=== PATIENT | male | born 1925 | race Caucasian/White ===

== ENCOUNTER 2016-11-17 08:45 | Inpatient (IN) | payer MEDICARE, OTHER ==
[~2016-11-17] VITALS: Ht 180.3 cm; Wt 79.8 kg
[~2016-11-17 08:45] MED LIST: ASPI-587 PO; GLYB5TAB6 PO; HCTZ12.5T GT; LOSA50TA6 PO; PIOG1TAB15 PO
--- NOTE | 2016-11-17 08:57 | ED Fall/Injury ---
General Stated Complaint: FALL Source: patient, EMS Exam Limitations: no limitations History of Present Illness Time seen by provider: 08:53 Initial Comments 89 yowm slipped and fell in shower 1 hr ago w injury rt leg above knee. No other injury. Unable to wt bear. S/P rt knee replace 15 yrs ago. S/P rt hip. S /P cervical disc. C/o sharp pain rt thigh. No LOS. No syncope. No chest pain or palpatations. Hypertension, DM. PCP Dr. Benitez. Allergies and Home Medications Allergies Coded Allergies: Penicillins (Unverified Allergy, Unknown, 11/06/14) Home Medications Aspirin 81 Mg Tablet.dr 81 MG PO DAILY (Reported) Glyburide 5 Mg Tablet 1 EACH PO DAILY (Reported) Hydrochlorothiazide 12.5 Mg Cap 25 MG GT DAILY (Reported) Losartan Potassium 50 Mg Tablet 50 MG PO DAILY (Reported) Pioglitazone Hcl/Metformin Hcl 1 Each Tablet 1 EACH PO DAILY (Reported) Constitutional: No chills, No fever Eyes: Denies Blurred Vision Ears, Nose, Mouth, Throat: denies ear pain Respiratory: No cough Cardiovascular: No chest pain Gastrointestinal: No abdominal pain, No vomiting Genitourinary: no symptoms reported Musculoskeletal: No back pain, joint pain (rt knee) Skin: No rash Psychiatric/Neurological: No Symptoms Reported Past Dujlpro-Olsheb-Swwlqe Hx Surgeries HX Surgeries: Yes (NECK SURG FOR PINCHED NERVE) Surgeries: Appendectomy, Orthopedic Respiratory Hx Respiratory Disorders: No Cardiovascular Hx Cardiac Disorders: Yes Cardiac Disorders: Hypertension Neurological Hx Neurological Disorders: No Genitourinary Hx Genitourinary Disorders: No Gastrointestinal Hx Gastrointestinal Disorders: No Musculoskeletal Hx Musculoskeletal Disorders: Yes (NECK ) Musculoskeletal Disorders: Arthritis Endocrine Hx Endocrine Disorders: Yes Endocrine Disorders: Diabetes, Non-Insulin dep HEENT HX ENT Disorders: Yes HEENT Disorders: Cataract Cancer Hx Cancer: No Psychosocial Hx Psychiatric Problems: No Integumentary HX Skin/Integumentary Disorder: No Blood Transfusions Hx Blood Disorders: Yes (HEPATITIS A 2003) Reviewed Nursing Assessment Reviewed/Agree w Nursing PMH: Yes Physical Exam Vital Signs Vital Sign - Last 12Hours 11/17/16 08:45 Temp 96.5 Pulse 103 Resp 18 B/P 188/120 Pulse Ox 92 O2 Delivery Room Air Capillary Refill : General Appearance: WD/WN mild distress HEENT: normal ENT inspection Neck: normal inspection Cardiovascular: regular rate, rhythm Respiratory: lungs clear Gastrointestinal: normal bowel sounds non tender Back: normal inspection Extremities: other (pain and swelling rt knee and distal thigh) Neurologic/Psychiatric: no motor/sensory deficits alert normal mood/affect Skin: normal color warm/dry [employer] Coma Score Best Eye Response: (4) Open Spontaneously Best Verbal Response: (5) Oriented Best Motor Response: (6) Obeys Commands [employer] Total: 15 Progress/Results/Core Measures Results/Orders My Orders Orders-NEELA DALTON MD Fentanyl Injection (Sublimaze Injection (11/17/16 09:00) Ondansetron Injection (Zofran Injectio (11/17/16 09:00) Ns Iv 1000 Ml (Sodium Chloride 0.9%) (11/17/16 09:00) Knee, Right, 2 Views (11/17/16 08:52) Hip, Right, 2 Views (11/17/16 08:52) Femur, Right, 2 Views (11/17/16 08:52) Ct Extremity Lower Right W (11/17/16 09:51) Cbc With Automated Diff (11/17/16 09:53) Comprehensive Metabolic Panel (11/17/16 09:53) Ua Culture If Indicated (11/17/16 09:53) Ekg Tracing (11/17/16 09:53) Type And Screen (11/17/16 09:53) Chest 1 View, Ap/Pa Only (11/17/16 09:53) Medications Given in ED Current Medications Medications Dose Ordered Sig/Yefri Route Start Time Stop Time Status Last Admin Dose Admin Fentanyl Citrate 100 mcg Q1H PRN IVP 11/17/16 09:00 11/17/16 08:59 100 MCG Ondansetron HCl 4 mg ONCE ONCE IVP 11/17/16 09:00 11/17/16 09:01 DC 11/17/16 08:59 4 MG Vital Signs/I&O Vital Sign - Last 12Hours 11/17/16 11/17/16 08:45 08:45 Temp 96.5 96.5 Pulse 103 103 Resp 18 20 B/P 188/120 188/120 Pulse Ox 92 92 O2 Delivery Room Air Progress Note : Time: 09:55 Progress Note Xrays show fx distal rt femur. Radiologist concerned w hip and wants ct- ordered. Dr. Rolle called. Dr. Robles admitted. Preop tests ordered. Family debating ortho of choice. Departure Communication Time/Spoke to Admitting Phy: 09:[address] Robles. Time/Spoke to Consulting Physi: 09:57 Communication/Consulting Dr. Rolle Impression Impression: Primary Impression: Fracture, femur, distal Qualified Code: S72.401A - Unspecified fracture of lower end of right femur, initial encounter for closed fracture Disposition: HOME, SELF-CARE Condition: Improved Decision to Admit Reason: Admit from ER (Trauma) Decision to Admit/Date: Nov 17, 2016 Time/Decision to Admit Time: 09:58 Departure-Patient Inst. Referrals: NEELA BENITEZ MD (PCP) Primary Care Physician NEELA DALTON MD Nov 17, 2016 08:57
[2016-11-17] MEDS ORDERED: fentaNYL INJECTION 100 MCG/2 ML AMP IVP PRN (09:00)
[2016-11-17] MEDS ORDERED: ONDANSETRON 4 MG/2 ML (SDV) Z0FRAN IVP ONE (09:00)
[2016-11-17] MEDS ORDERED: NS IV 1000 ML 1,000 ML IV SCH (09:00)
--- NOTE | 2016-11-17 09:53 | Diagnostic Imaging Report ---
Clinical indication: Patient is post fall in shower this morning. Patient has pain in the right lower extremity. Exams: 1: X-ray of the right knee, 2 views. 2: X-ray of the right femur, 4 views. 3: X-ray of the right hip, 2 views. Comparison: None. Findings: The x-rays show diffuse osteopenia. There is a bipolar right hip arthroplasty. There is a questionable area of cortical regularity involving the inferior right acetabular rim and fracture can't be completely excluded. There is also bony thickening and irregularity of the right ischium which may be from old fracture changes. The right hip hardware is otherwise unremarkable as visualized. There is a comminuted and displaced fracture of the distal femoral diaphysis which demonstrates medial apex angulation and roughly 3 mm of anterior displacement of distal fracture fragment. Right total knee arthroplasty is seen. Besides the region of the distal femoral fracture, the remainder of the hardware is unremarkable. There is suspected small right knee effusion. Vascular calcifications are seen. Impression: 1: There is a comminuted and mildly displaced fracture of the distal femoral diaphysis with medial apex angulation. 2: Concern for possible fracture of the right acetabulum. CT scan of the right hip would better evaluate. 3: Bipolar right hip arthroplasty and right knee arthroplasties are seen. Critical findings Results of this report was discussed with Dr. Jorge Bolden via the telephone on 11/17/2016 at 0950 hrs. Dictated by: Dictated on workstation # [id number]
[2016-11-17 10:01] LABS: BASOPHILS % (AUTO) 0 % (0-10); EOSINOPHILS # (AUTO) 0.2 10^3/uL (0.0-0.3); EOSINOPHILS % (AUTO) 3 % (0-10); LYMPHOCYTES # (AUTO) 1.7 X 10^3 (1.0-4.0); LYMPHOCYTES % (AUTO) 27 % (12-44); MEAN CORPUSCULAR HEMOGLOBIN 32 PG (25-34); MEAN CORPUSCULAR HGB CONC 33 G/DL (32-36); MEAN CORPUSCULAR VOLUME 100 FL (80-99); MEAN PLATELET VOLUME 9.4 FL (7.4-10.4); MONOCYTES # (AUTO) 0.5 X 10^3 (0.0-1.0); MONOCYTES % (AUTO) 7 % (0-12); NEUTROPHILS % (AUTO) 62 % (42-75); PLATELET COUNT 226 10^3/uL (130-400); RED BLOOD COUNT 3.49 10^6/uL (4.35-5.85); RED CELL DISTRIBUTION WIDTH 13.8 % (10.0-14.5); WHITE BLOOD COUNT 6.4 10^3/uL (4.3-11.0)
[2016-11-17 10:13] LABS: BILIRUBIN,TOTAL 0.8 MG/DL (0.1-1.0); CALCIUM 8.8 MG/DL (8.5-10.1); CREATININE SERUM 1.63 MG/DL (0.60-1.30); POTASSIUM 4.1 MMOL/L (3.6-5.0); TOTAL PROTEIN 6.5 G/DL (6.4-8.2)
--- NOTE | 2016-11-17 10:18 | Diagnostic Imaging Report ---
INDICATION: Preop femur fracture. COMPARISON: 11/06/2014. FINDINGS: Single view of the chest demonstrates chronic elevation of the right hemidiaphragm. There is infiltrate in the left base. Heart is prominent without pulmonary edema. There is no pneumothorax. IMPRESSION: 1. Infiltrate left lung base. 2. Chronic elevation of right hemidiaphragm. Dictated by: Dictated on workstation # [id number]
--- NOTE | 2016-11-17 10:21 | Diagnostic Imaging Report ---
Clinical indication: Patient status post fall this morning. Followup x-ray. Exam: Axial CT scan of the right hip performed without IV contrast. Sagittal and coronal reformatted images are created. Comparison: X-ray of the right hip dated 11/17/2016. Findings: Osteopenia is noted. Bipolar right hip arthroplasty is again seen. Streak artifact obscures portions of the bony structures. Again seen area of cortical irregularity involving the posterior right acetabulum which represents a chronic bony fragment and is corticated. There is no acute fracture seen. Old healed fracture changes with bony hypertrophy involving the inferior right ischium. The remainder of the pelvis and left hip is unremarkable. Visualized portion of the pelvic soft tissue and extrapelvic soft tissue structures are unremarkable. There is atrophy of the right upper thigh and right gluteus musculature. Vascular calcifications are seen. Impression: 1.: There is no evidence of acute fracture or dislocation. 2: There is a chronic calcification seen adjacent to the posterior wall of the right acetabulum which correlates to the abnormality seen on the x-ray. This is chronic and does not represent an acute fracture. 3: Bipolar right hip arthroplasty with no gross complication. Dictated by: Dictated on workstation # [id number]
[2016-11-17] MEDS ORDERED: ONDANSETRON 4 MG/2 ML (SDV) Z0FRAN IV PRN ×3 (11:45→16:15)
[2016-11-17] MEDS ORDERED: fentaNYL INJECTION 100 MCG/2 ML AMP IV PRN (11:45)
--- NOTE | 2016-11-17 11:59 | History & Physical-Hospitalist ---
HPI History of Present Illness: HPI/Chief Complaint The patient's an 89-year-old white male who fell coming out of the shower at his home this morning and suffered a distal femur fracture. His daughter states that he does not walk much but is able to stand and pivot. He spends most of his time in a chair or a wheelchair. His other medical problems include diabetes for which he takes oral medications and high blood pressure. Source: patient, family Exam Limitations: no limitations Date Seen 11/17/16 Attending Physician Jose Martinez MD PCP Jorge Benitez MD Referring Physician Date of Admission Nov 17, 2016 at 10:31 Home Medications & Allergies Home Medications Reviewed patient Home Medication Reconciliation Form Allergies Coded Allergies: Penicillins (Unverified Allergy, Unknown, 11/06/14) Past Peetuef-Dsrpbu-Wqvzvh Hx Patient Social History Alcohol Use: Rarely Uses Recreational Drug Use: No Smoking Status: Never a Smoker Physical Abuse Screen: No Sexual Abuse: No Recent Foreign Travel: No Contact w/other who traveled: No Recent Hopitalizations: No Recent Infectious Disease Expo: No Immunizations Up To Date Tetanus Booster (TDap): Unknown Date of Influenza Vaccine: Jul 14, 2016 Seasonal Allergies Seasonal Allergies: No Surgeries HX Surgeries: Yes (NECK SURG FOR PINCHED NERVE) Surgeries: Appendectomy, Orthopedic Respiratory Hx Respiratory Disorders: No Cardiovascular Hx Cardiovascular Disorders: Yes Cardiac Disorders: Hypertension Neurological Hx Neurological Disorders: No Genitourinary Hx Genitourinary Disorders: No Gastrointestinal Hx Gastrointestinal Disorders: No Musculoskeletal Hx Musculoskeletal Disorders: Yes (NECK ) Musculoskeletal Disorders: Arthritis Endocrine Hx Endocrine Disorders: Yes Endocrine Disorders: Diabetes, Non-Insulin dep HEENT HX ENT Disorders: Yes HEENT Disorders: Cataract Cancer Hx Cancer: No Psychosocial Hx Psychiatric Problems: No Integumentary HX Skin/Integumentary Disorder: No Blood Transfusions Hx Blood Disorders: Yes (HEPATITIS A 2003) Reviewed Nursing Assessment Reviewed/Agree w Nursing PMH: Yes Family Medical History Family Hx: Cardiovascular disease G8 BROTHER Completed stroke 19 FATHER Diabetes mellitus G8 BROTHER FH: throat cancer G8 BROTHER Hypertension DAUGHTER DAUGHTER DAUGHTER Review of Systems Constitutional: see HPI EENTM: no symptoms reported Respiratory: no symptoms reported Cardiovascular: no symptoms reported Gastrointestinal: no symptoms reported Genitourinary: no symptoms reported Musculoskeletal: other Skin: no symptoms reported Psychiatric/Neurological: No Symptoms Reported Physical Exam Physical Exam Vital Signs Vital Sign - Last 12Hours 11/17/16 08:45 Temp 96.5 Pulse 103 Resp 18 B/P 188/120 Pulse Ox 92 O2 Delivery Room Air Capillary Refill : Less Than 3 Seconds General Appearance: Other (the patient is a pleasant elderly white male) Eyes: Bilateral Eye Normal Inspection HEENT: Normal ENT Inspection Neck: Normal Inspection Respiratory: Chest Non Tender Lungs Clear Normal Breath Sounds No Accessory Muscle Use No Respiratory Distress Cardiovascular: Regular Rate, Rhythm No Edema No Gallop No JVD No Murmur Normal Peripheral Pulses Gastrointestinal: Normal Bowel Sounds No Organomegaly No Pulsatile Mass Non Tender Soft Back: Normal Inspection No CVA Tenderness No Vertebral Tenderness Extremity: Normal Capillary Refill Other (there is swelling and apparent deformity in the distal right femur) Neurologic/Psychiatric: Alert Oriented x3 No Motor/Sensory Deficits Normal Mood/Affect Skin: Normal Color Warm/Dry Lymphatic: No Adenopathy Results Results/Procedures Lab Laboratory Tests 11/17/16 08:50 Assessment/Plan Admission Diagnosis 1.fracture right distal femur. 2.hypertension. 3.diabetes mellitus type II oral medications Assessment and Plan Plan: OR today. Clinical Quality Measures DVT/VTE Risk/Contraindication: Risk Factor Score Per Nursin RFS Level Per Nursing on Admit: 4+=Very High JOSE MARTINEZ MD Nov 17, 2016 11:59
[2016-11-17 12:00] VITALS: BP 119/76
[2016-11-17] MEDS ORDERED: proPOfol 200 MG/20 ML (DIPRIVAN) VIAL IV ONE (13:24)
[2016-11-17] MEDS: NS IV 1000 ML 1,000 ML IV SCH ×2 (13:56→21:03)
[2016-11-17] MEDS: LACTATED RINGERS 1,000 ML IV PRN ×3 (14:03→14:50)
[2016-11-17] MEDS ORDERED: morphine INJ 10 MG/ML 1ML (SYR OR VIAL) ONE (14:25)
[2016-11-17] MEDS ORDERED: MEPERIDINE (DEMEROL) INJ 50 MG/ML ONE (14:26)
[2016-11-17] MEDS ORDERED: LACTATED RINGERS 1,000 ML IV ONE ×2 (14:30→14:51)
[2016-11-17] MEDS ORDERED: CLINDAMYCIN 600 MG/4ML (CLEOCIN) VIAL ONE (14:30)
[2016-11-17] MEDS ORDERED: CLINDAMYCIN 600 MG/50 ML IVPB 50 ML IV ONE (14:45)
[2016-11-17] MEDS ORDERED: PHENYLEPHRINE 100 MCG/ML 10 ML (ANESTHESIA) SYR ONE (14:45)
[2016-11-17] MEDS ORDERED: NS (IVPB) 250 ML ONE (14:47)
[2016-11-17] MEDS ORDERED: PHENYLEPHRINE INJ 10 MG/ML (NEO-SYNEPHRINE 1%) ONE (14:47)
--- NOTE | 2016-11-17 15:39 | Consultation ---
History of Present Illness History of Present Illness Patient Consulted On(colby/time) 11/17/16 15:33 Date of Admission 11/17/2016 Reason for Visit: right thigh pain History of Present Illness This 89 year old white male fell at home this AM in the shower and hurt the right leg. He was seen in the ER and diagnosed with a right femur fracture above a total knee arthroplasty. He lives alone and is very frail. He is a minimal ambulator and uses a motorized scooter in the home. He denies any other extremity pain, LOC, or other injury. He had a right TKA done [address] Graves and had a right hip bipolar done by Dr. Graves years ago for a fracture. His a few years ago and his daughter is with him today. Dr. Valladares, a classified advertising supervisor with our group, is his grandson. Allergies and Home Medications Allergies Coded Allergies: Penicillins (Unverified Allergy, Unknown, 11/06/14) Home Medications Aspirin 81 Mg Tablet.dr 81 MG PO DAILY (Reported) Glyburide 5 Mg Tablet 1 EACH PO DAILY (Reported) Hydrochlorothiazide 12.5 Mg Cap 25 MG GT DAILY (Reported) Losartan Potassium 50 Mg Tablet 50 MG PO DAILY (Reported) Pioglitazone Hcl/Metformin Hcl 1 Each Tablet 1 EACH PO DAILY (Reported) Past Vhyuape-Bvkpcq-Kphxjf Hx Patient Social History Alcohol Use: Denies Use Recreational Drug Use: No Smoking Status: Never a Smoker Recent Foreign Travel: No Contact w/Someone Who Travel: No Recent Infectious Disease Expo: No Recent Hopitalizations: No Physical Abuse Screen: No Sexual Abuse: No Immunizations Up To Date Tetanus Booster (TDap): Unknown PED Vaccines UTD: No Date of Pneumonia Vaccine: Dec 12, 2013 Date of Influenza Vaccine: Jul 14, 2016 Seasonal Allergies Seasonal Allergies: No Surgeries HX Surgeries: Yes (NECK SURG FOR PINCHED NERVE) Surgeries: Appendectomy, Orthopedic Respiratory Hx Respiratory Disorders: No Cardiovascular Hx Cardiac Disorders: Yes Cardiac Disorders: Hypertension Neurological Hx Neurological Disorders: No Genitourinary Hx Genitourinary Disorders: No Gastrointestinal Hx Gastrointestinal Disorders: No Musculoskeletal Hx Musculoskeletal Disorders: Yes (NECK ) Musculoskeletal Disorders: Arthritis Endocrine Hx Endocrine Disorders: Yes Endocrine Disorders: Diabetes, Non-Insulin dep HEENT HX ENT Disorders: Yes HEENT Disorders: Cataract Cancer Hx Cancer: No Psychosocial Hx Psychiatric Problems: No Integumentary HX Skin/Integumentary Disorder: No Blood Transfusions Hx Blood Disorders: Yes (HEPATITIS A 2003) Reviewed Nursing Assessment Reviewed/Agree w Nursing PMH: Yes Family Medical History Family Medial History: Cardiovascular disease G8 BROTHER Completed stroke 19 FATHER Diabetes mellitus G8 BROTHER FH: throat cancer G8 BROTHER Hypertension DAUGHTER DAUGHTER DAUGHTER Physical Exam-General Problems Physical Exam Vital Signs Vital Sign - Last 12Hours 11/17/16 11/17/16 08:45 11:30 Temp 96.5 Pulse 103 Resp 18 B/P 188/120 Pulse Ox 92 O2 Delivery Room Air O2 Flow Rate 2.00 Capillary Refill : Less Than 3 SecondsLess Than 3 Seconds Neck: non-tender Respiratory: chest non-tender Extremities: normal capillary refill pelvis stable pedal edema slow capillary refill other (The right leg is shortened and externally rotated. The right thigh is swollen and tender.) Neurologic/Psychiatric: no motor/sensory deficits alert normal mood/affect oriented x 3 Skin: normal color warm/dry Assessment/Plan Assessment/Plan Admission Diagnosis/Plan Right comminuted distal femur fracture above a total knee arthroplasty-- His best option would be ORIF with a locking plate and screws. He was cleared for surgery and will be take to surgery this afternoon. He lives alone and will need to go to rehab or go to alf in several days after he is medically stable and getting over the surgery. Clinical Quality Measures DVT/VTE Risk/Contraindication: Risk Factor Score Per Nursin RFS Level Per Nursing on Admit: 4+=Very High SULY EPPS MD Nov 17, 2016 15:39
--- NOTE | 2016-11-17 15:42 | Diagnostic Imaging Report ---
Clinical indication: Open reduction internal fixation of the distal femur fracture. Exam: There is a total of four limited intraoperative spot fluoroscopic images of the distal right femur. Comparison: X-ray of the right femur dated 11/17/2016. Findings and impression: There has been interval placement of sideplate and screws internally fixing the comminuted distal fibular diaphyseal fracture which is now in near anatomic alignment. Right total knee arthroplasty is partially visualized. Please see surgeon's report for more detail. Fluoroscopy was provided for surgeons and a total of 29.3 seconds and 1.91 mGy was provided. Dictated by: Dictated on workstation # [id number]
--- NOTE | 2016-11-17 15:43 | Progress Note-Post Operative ---
Post-Operative Progess Note Road Marker Lucio Estrada PA-C Pre-Operative Diagnosis Right periprosthetic, comminuted supracondylar femur fracture Post-Operative Diagnosis same Post-Op Procedure Note Date of Procedure: Nov 17, 2016 Name of Procedure: ORIF right distal femur Procedure Note/Findings Highly comminuted fracture Anesthesia Type Spinal Packing: none Specimen(s) collected none SULY EPPS MD Nov 17, 2016 15:43
[2016-11-17] MEDS ORDERED: oxyCODONE/APAP 5/325MG (PERCOCET 5) TABLET PO PRN (15:45)
[2016-11-17] MEDS ORDERED: morphine INJ 10 MG/ML 1ML (SYR OR VIAL) IV PRN (16:15)
[2016-11-17 17:00] VITALS: BP 120/75
[2016-11-17 19:56] VITALS: BP 125/79
[2016-11-17] MEDS: DOCUSATE SODIUM 100 MG (COLACE) CAP PO SCH (21:02)
[2016-11-17] MEDS: HYDROcodone/APAP 5 MG/325 MG (LORTAB) TAB PO PRN (21:03)
[2016-11-18 00:02] VITALS: BP 126/67
[2016-11-18] MEDS: morphine INJ 4 MG/ML 1 ML (VIAL/SYRINGE) IVP PRN ×3 (00:10→16:52)
[2016-11-18] MEDS: HYDROcodone/APAP 5 MG/325 MG (LORTAB) TAB PO PRN ×2 (02:46→10:32)
[2016-11-18] MEDS ORDERED: VANCOMYCIN IV ADD-VANTAGE 1,000 MG in SODIUM CHLORIDE (ADD-VANTAGE) 250 ML IV ONE (03:45)
[2016-11-18 04:00] VITALS: BP 93/58
[2016-11-18 07:01] LABS: CALCIUM 7.8 MG/DL (8.5-10.1); CREATININE SERUM 1.86 MG/DL (0.60-1.30); POTASSIUM 4.8 MMOL/L (3.6-5.0)
[2016-11-18] MEDS: NS IV 1000 ML 1,000 ML IV SCH ×2 (07:54→16:52)
[2016-11-18 08:00] VITALS: BP 91/60
--- NOTE | 2016-11-18 09:29 | Progress Note (SOAP) ---
Subjective Subjective/Events-last exam He is postop from ORIF of right femur. He has no complaints. Objective Exam Vital Signs Date Time Temp Pulse Resp B/P Pulse Ox O2 Delivery O2 Flow Rate FiO2 11/18/16 08:00 97.8 95 20 91/60 97 Nasal Cannula 2.00 11/18/16 07:47 3.00 11/18/16 04:00 97.2 98 18 93/58 94 Nasal Cannula 2.00 11/18/16 00:02 97.1 88 20 126/67 90 Nasal Cannula 2.00 11/17/16 23:25 2.00 11/17/16 20:00 96 Nasal Cannula 2.00 11/17/16 19:56 97.1 109 20 125/79 96 Nasal Cannula 2.00 11/17/16 17:00 97.4 104 20 120/75 96 Nasal Cannula 2.00 11/17/16 12:00 97.6 84 20 119/76 93 Nasal Cannula 2.00 11/17/16 11:30 93 Nasal Cannula 2.00 11/17/16 10:33 106 18 95 I & O 11/18/16 07:00 Intake Total 4340 ml Output Total 1150 ml Balance 3190 ml Capillary Refill : Less Than 3 SecondsLess Than 3 Seconds General Appearance: No Apparent Distress Extremity: Normal Capillary Refill No Calf Tenderness Other (Right thigh with no drainage.) Neurologic/Psychiatric: Oriented x3 Results Lab Laboratory Tests 11/18/16 05:21: Anion Gap 10, BUN/Creatinine Ratio 19, Blood Urea Nitrogen 35H, Calcium Level 7.8L, Carbon Dioxide Level 19L, Chloride Level 108H, Creatinine 1.86H, Estimat Glomerular Filtration Rate 34, Glucose Level 141H, Hematocrit 27L, Hemoglobin 8.3#L, Potassium Level 4.8, Sodium Level 137 Assessment/Plan Assessment/Plan Assess & Plan/Chief Complaint Postop ORIF of right distal femur-- He is a minimal ambulator. He will have PT and need to go to rehab or skilled. His hemoglobin is 8.3 and he might need some blood tomorrow if it drops below 8. Diagnosis/Problems: Clinical Quality Measures DVT/VTE Risk/Contraindication: Risk Factor Score Per Nursin RFS Level Per Nursing on Admit: 4+=Very High SULY EPPS MD Nov 18, 2016 09:29
[2016-11-18] MEDS: DOCUSATE SODIUM 100 MG (COLACE) CAP PO SCH ×2 (10:32→20:26)
[2016-11-18] MEDS: ENOXAPARIN 30 MG/0.3 ML (LOVENOX) SYR SC SCH (10:32)
--- NOTE | 2016-11-18 10:33 | Anesthesia-Regional Post-Op ---
Regional Patient Condition Mental Status: Alert, Oriented x3 Circulation: Same as Pre-Op Headache: Absent Sensation: Full Recovery Motor Block: Absent Post Op Complications Complications None Follow Up Care/Instructions Patient Instructions None needed. Anesthesia/Patient Condition Patient is doing well, no complaints, stable vital signs, no apparent adverse anesthesia problems. No complications reported per nursing. ION SABA CRNA Nov 18, 2016 10:33
[2016-11-18 12:00] VITALS: BP 87/50
[2016-11-18] MEDS ORDERED: LOSARTAN 50 MG (COZAAR) TAB PO SCH (13:09)
--- NOTE | 2016-11-18 13:14 | Progress Note-Hospitalist ---
Standard Progress Note Progress Notes/Assess & Plan Date Seen 11/18/16 Diagnosis 1.fracture right distal femur. 2.hypertension. 3.diabetes mellitus type II oral medications Assess & Plan/Chief Complaint The patient reports reasonable control of pain. He and his daughter are concerned as his outpatient meds have not been started. I have added and chose those that are important for the time being. Physical exam: He is alert and oriented. Lungs are clear to auscultation. CV is regular without murmur. Impression: Fracture right distal femur post operative stabilization. 2 hypertension. 3 diabetes mellitus type II on oral medications. Plan: Restart appropriate home medicines. PT to start in the morning. Labs Laboratory Tests 11/17/16 08:50 11/18/16 05:21 ASHTYN MARTINEZ MD Nov 18, 2016 13:14
[2016-11-18 16:00] VITALS: BP 91/57
[2016-11-18] MEDS: metFORMIN 850 MG (GLUCOPHAGE) TAB PO SCH (16:52)
[2016-11-18 19:27] VITALS: BP 86/56
[2016-11-18] MEDS: PIOGLITAZONE 30MG (ACTOS) TAB PO SCH (20:26)
[2016-11-19] VITALS (12 sets, daily range): BP systolic 89–142; BP diastolic 51–86
[2016-11-19 00:02] LABS: MEAN PLATELET VOLUME 8.9 FL (7.4-10.4); RED BLOOD COUNT 2.4 10^6/uL (4.35-5.85); RED CELL DISTRIBUTION WIDTH 13.8 % (10.0-14.5); WHITE BLOOD COUNT 10.2 10^3/uL (4.3-11.0)
[2016-11-19] MEDS: NS IV 1000 ML 1,000 ML IV SCH ×2 (00:36→12:04)
[2016-11-19] MEDS ORDERED: NS IV 500 ML 500 ML ONE (02:09)
[2016-11-19] MEDS: metFORMIN 850 MG (GLUCOPHAGE) TAB PO SCH (06:12)
[2016-11-19] MEDS ORDERED: PIOG30TA26 PO (08:44)
[2016-11-19] MEDS ORDERED: HYDR25TA4 PO (08:44)
[2016-11-19] MEDS ORDERED: LOSA50TA36 PO (08:44)
[2016-11-19] MEDS ORDERED: METF850T2 PO (08:44)
[2016-11-19] MEDS ORDERED: CYAN100T PO (08:45)
[2016-11-19] MEDS ORDERED: CYAN100015 SL (08:46)
[2016-11-19 09:02] LABS: CALCIUM 7.9 MG/DL (8.5-10.1); CREATININE SERUM 2.23 MG/DL (0.60-1.30); POTASSIUM 4.9 MMOL/L (3.6-5.0)
[2016-11-19] MEDS: PIOGLITAZONE 30MG (ACTOS) TAB PO SCH ×2 (09:07→21:35)
[2016-11-19] MEDS: DOCUSATE SODIUM 100 MG (COLACE) CAP PO SCH ×2 (09:07→21:35)
[2016-11-19] MEDS ORDERED: HYDR453.3 TP (09:15)
--- NOTE | 2016-11-19 09:58 | Physical Therapy Evaluation ---
PT Evaluation-General Medical Diagnosis Admission Date Nov 17, 2016 at 10:31 Medical Diagnosis: right femur fracture Onset Date: Nov 17, 2016 Therapy Diagnosis Therapy Diagnosis: debility and weakness Height/Weight Height (Feet): 5 Height (Inches): 11.00 Weight (Pounds): 176 Weight (Ounces): 0.0 Precautions Precautions/Isolations: Fall Prevention, Standard Precautions Weight Bear Status Weight Bearing Restriction: Touch Toe Bearing Location Restriction: R LE Referral Physician: Aquilino Reason for Referral: Evaluation/Treatment Medical History Pertinent Medical History: Arthritis, DM, HTN Additional Medical History fell getting out of the shower Current History per patient and daughter, patient transfers only at home to w/c for mobility Reviewed History: Yes Social History Home: Single Level Current Living Status: Alone Entry Into Home: Level Entry Prior/Core FIM Prior Level of Function Functional [place] Measure 0=Not Assessed/NA 4=Minimal Assistance 1=Total Assistance 5=Supervision or Setup 2=Maximal Assistance 6=Modified [place] 3=Moderate Assistance 7=Complete [place] Bed Mobility: 5 Transfers (B,C,W/C) (FIM): 5 Gait: 1 Wheelchair Mobility: 7 ambulates less than 5' PT Evaluation-Current Subjective Patient is in bed and reluctant to participate with PT. Patient rates right LE pain 8/10 with meds issued. Pain Numeric Pain Scale: 8 Location: Right Location Body Site: Thigh Pain Description: Acute Pt/Family Goals noted edema right LE Objective Patient Orientation: Person, Time, Situation Problem Solving: Poor Attachments: Oxygen (3L), Combs Catheter, IV ROM/Strength ROM Lower Extremities left LE WFL; right LE limited knee flexion and hip flexion/extension due to pain and disuse Strenght Lower Extremities left knee flexion/extension3-/5; hip flexion3-/5;ankle dorsi/plantarflexion 3-/5 right knee flexion/extension 2-/5; hip flexion NT (due to pain); ankle dorsi/ plantarflexion 1/5 Integumentary/Posture Integumentary refer to nursing notes Bladder Incontinence: Combs Cath Posture slightly kyphotic posture; hip flexed posture in stand Neuromuscular (Tone, Coordination, Reflexes) diminished coordination Sensory Vision: Wears Glasses Hearing: Impaired Sensation Right Lower Extremit: Impaired Sensation Left Lower Extremity: Impaired Transfers Functional [place] Measure 0=Not Assessed/NA 4=Minimal Assistance 1=Total Assistance 5=Supervision or Setup 2=Maximal Assistance 6=Modified [place] 3=Moderate Assistance 7=Complete [place] Transfers (B, C, W/C) (FIM): 1 Scootin Rollin Supine to/from Sit: 1 Sit to/from Stand: 1 bed t/f WC(FIM only if WC use): 1 dependent assist x 2 with patient demonstrating retropulsion in sit and inability to comply with TTWB right LE to SPT with FWW bed to recliner. Gait Mode of Locomotion: Wheelchair Anticipated Mode of Locomotion: Wheelchair Balance Sitting Static: Poor Sitting Dynamic: Poor Standing Static: Poor Standing Dynamic: Poor Treatment AAROM right LE in sit 20 reps ankle dorsi/plantarflexion, LAQ Assessment/Needs 89 y.o. male, will benefit from skilled PT to address functional strength and mobility to improve current LOF and to safely dismiss to NH for continued care. From a PT standpoint, patient will require extended care due to weight bearing status and diminished functional mobility PLOF. Rehab Potential: Fair Post Rehab Potential-Barriers: TTWB right LE compliance PT Mcfp Goals Carbon Paper Interleafer Goals PT Carbon Paper Interleafer Goals Time Frame: Nov 28, 2016 Transfers (B,C,W/C) (FIM): 3 (SPT bed to w/c with FWW use) PT Plan Problem List Problem List: Activity Tolerance, Functional Strength, Balance, Transfer, Bed Mobility Treatment/Plan Treatment Plan: Continue Plan of Care Treatment Plan: Bed Mobility, Education, Functional Activity Bita, Functional Strength, Safety, Therapeutic Exercise, Transfers Treatment Duration: Nov 28, 2016 # of days/week 5-6 Visits Per Week: 10-11 Pt/Family Agrees w/Plan: Yes Safety Risks/Education Patient Education: Transfer Techniques, Safety Issues Teaching Recipient: Patient, Family Teaching Methods: Demonstration, Discussion Response to Teaching: Verbalize Understanding, Return Demonstration, Reinforcement Needed Discharge Recommendations Therapy D/C Recommendations: Assisted (TCU/NH) Time/GCodes Time In: 830 Time Out: 900 Total Billed Treatment Time: 30 Total Billed Treatment 1 visit EVHighC 30 min ANDRES VENTURA PT Nov 19, 2016 09:58
[2016-11-19] MEDS: ENOXAPARIN 30 MG/0.3 ML (LOVENOX) SYR SC SCH (10:22)
--- NOTE | 2016-11-19 12:20 | OPERATIVE REPORT ---
PROCEDURE PHYSICIAN: SULY ROLLE DATE OF PROCEDURE: 11/17/2016 PREOPERATIVE DIAGNOSIS: Displaced comminuted periprosthetic right supracondylar femoral fracture. POSTOPERATIVE DIAGNOSIS: Displaced comminuted periprosthetic right supracondylar femoral fracture. PROCEDURE: Open reduction and internal fixation of right femur. SURGEON: Dr. Rolle ASSISTING: PAC. Bj CLINICAL NURSING ASSISTANT SURGEON DUTIES: Patient positioning, retraction, use of internal fixation devices, wound closure, application of sterile dressings. Use of assistant branch manager to the surgery is medically indicated. ANESTHESIA: Spinal. ESTIMATED BLOOD LOSS: 300 mL COMPLICATIONS: None. SPECIMENS: None. INDICATIONS: This man had a right total knee arthroplasty done 15 years ago. He also had right hip bipolar arthroplasty. He fell in the shower this morning and fractured the right femur above the total knee. He was cleared by the hospitalist for surgery and came to the operating room for open reduction and internal fixation. IMPLANTS: Synthes locking right supracondylar femoral plate and screws with a total of 6, 4.5 mm bicortical screws proximal to the fracture single interfragmentary compression screw, a single Synthes cable, a large distal locking screws and 4 smaller distal locking screws. PROCEDURE IN DETAIL: After informed consent, the patient was transported to over the operating and was placed under spinal anesthetic and then transferred to the table in the supine position. The right lower extremity was prepped with ChloraPrep and draped in the sterile fashion. Incision was made along the lateral aspect of the right femur, it was carried out through subcutaneous tissues down to the fascia, bleeders were coagulated with electrocautery. Then IT band was opened in line with the skin incision and then the vastus lateralis was lifted anteriorly and elevated from the femur fracture was identified. It was very comminuted. The fracture could be reduced with traction and reduction forceps around the oblique portion of the fracture. I chose the appropriate length plate and placed it over the lateral aspect of the femur. I placed a Synthes cable around the oblique portion of the fracture to use as a reduction forceps, around the plate and reduce the fracture and tightened the cable down tightly but did not crimp it. Then the plate was placed on the appropriate portion of the distal femur and the drill sleeves were screwed into the locking screw holes distally and a large guidepin was drilled across the distal femur. The fracture was further manipulated and visualized under C-arm and then a provisional screw was placed in one of the proximal holes of the plate to hold the plate down to the bone and looking at all of the femur laterally and palpating it, the plate was superimposed along the lateral aspect of the femur in the appropriate position. The C-arm confirmed satisfactory reduction. Next, guide pins then were drilled through the drill sleeves in the distal femur and the additional 4 smaller locking screws of the appropriate length were placed over the guide pins obtaining good purchase in the distal femur. Then I placed 2 additional screws in the proximal femur proximal and these were 4.5 mm nonlocking screws. Then the cable was removed from the femur. A cable eyelet then was placed in one of the distal holes in the plate and the cable was placed around the distal femur placed through the eyelet and it was tightened down tightly, crimped and cut short. Then I placed an interfragmentary compression screw obliquely across the fracture site through the plate obtaining good purchase in the distal femur. I placed a total of 6, 4.5 mm bicortical screws proximal to the fracture obtaining good purchase. The reduction appeared to be satisfactory and out to length. The wound was thoroughly irrigated. Hardcopy C-arm images were saved to the PACS system and the wounds were thoroughly irrigated. The IT band was closed with a running double layered number 1 SRATAFIX suture followed by interrupted 0 Vicryl suture at stress points running 2-0 Vicryl for subcutaneous tissues and elias on the skin. A bulky dressing was applied. The patient then was transported to the recovery room in stable condition. Job ID: [id number] Dictated Date: 11/17/2016 16:03:43 Manager Personnel Selection Date: 11/19/2016 11:48:05 / mark
[2016-11-19] MEDS ORDERED: CATHETER FLUSH 10 ML SYR IV PRN (13:00)
--- NOTE | 2016-11-19 14:31 | Progress Note (SOAP) ---
Subjective Subjective/Events-last exam He is postop day 2 ORIF of right femur. He has no complaints. Sat up in chair but was dependent on others to transfer Objective Exam Vital Signs Date Time Temp Pulse Resp B/P Pulse Ox O2 Delivery O2 Flow Rate FiO2 11/19/16 12:12 98.8 110 22 133/85 97 3.00 11/19/16 11:56 98.8 110 22 125/74 98 3.00 11/19/16 08:51 99.9 115 18 121/75 93 Nasal Cannula 2.00 11/19/16 08:03 95 Nasal Cannula 2.00 11/19/16 06:06 98.7 105 106/60 11/19/16 04:00 96.2 107 20 95/53 92 Nasal Cannula 2.00 11/19/16 03:21 99.5 111 89/51 11/19/16 03:06 98.9 111 104/60 11/19/16 00:00 98.3 114 22 95/68 95 Nasal Cannula 2.00 11/18/16 20:15 95 Nasal Cannula 2.00 11/18/16 19:27 98.7 115 20 86/56 93 Nasal Cannula 2.00 11/18/16 16:00 97.7 113 20 91/57 95 Nasal Cannula 2.00 I & O 11/19/16 07:00 Intake Total 3505 ml Output Total 475 ml Balance 3030 ml Capillary Refill : Less Than 3 SecondsLess Than 3 Seconds General Appearance: No Apparent Distress Extremity: Normal Capillary Refill Non Tender No Calf Tenderness Other ( Incision intact with minimal drainage) Neurologic/Psychiatric: Alert Oriented x3 No Motor/Sensory Deficits Results Lab Laboratory Tests 11/18/16 23:45: Hematocrit 24L, Hemoglobin 7.6L, Mean Corpuscular Hemoglobin 32, Mean Corpuscular Hemoglobin Concent 31L, Mean Corpuscular Volume 102H, Mean Platelet Volume 8.9, Platelet Count 167, Red Blood Count 2.40L, Red Cell Distribution Width 13.8, White Blood Count 10.2 11/19/16 08:30: Hematocrit 26L, Hemoglobin 8.5L, Anion Gap 10, BUN/Creatinine Ratio 19, Blood Urea Nitrogen 43H, Calcium Level 7.9L, Carbon Dioxide Level 19L, Chloride Level 110H, Creatinine 2.23H, Estimat Glomerular Filtration Rate 28, Glucose Level 133H, Potassium Level 4.9, Sodium Level 139 11/19/16 12:26: Lab Scanned Report Transfusion Reaction Form Microbiology 11/17/16 MRSA Screen - Final, Complete MRSA not isolated Assessment/Plan Assessment/Plan Assess & Plan/Chief Complaint Postop ORIF of right distal femur-- He is a minimal ambulator. He will have PT and need to go to rehab or skilled. He is getting blood now. Hopefully he will do better with PT tomorrow. He understands that he will not be able to go home alone until he is doing better and skilled or rehab is the plan once he is medically stable and the hemoglobin levels out. Diagnosis/Problems: Clinical Quality Measures DVT/VTE Risk/Contraindication: Risk Factor Score Per Nursin RFS Level Per Nursing on Admit: 4+=Very High SULY EPPS MD Nov 19, 2016 14:31
--- NOTE | 2016-11-19 14:47 | Physical Therapy Daily Note ---
PT Daily Note-Current Subjective Patient is up in recliner from a.m. treatment by PT. Pain Numeric Pain Scale: 8 Location: Right Location Body Site: Thigh Pain Description: Acute Appearance noted 2+ pitting edema right LE due to immobility Mental Status Patient Orientation: Person, Time, Situation Attachments: Oxygen, Combs Catheter, IV Transfers Functional [place] Measure 0=Not Assessed/NA 4=Minimal Assistance 1=Total Assistance 5=Supervision or Setup 2=Maximal Assistance 6=Modified [place] 3=Moderate Assistance 7=Complete IndependenceIRFPAI Quality Coding Scale 6 Independent with activity with or without an assistive device 5 Patient requires set up or clean up by helper. Patient completes activity by themselves 4 Supervision or touching assist (CGA). [place] provide cues , steadying assist 3 The helper provides less than half the effort to complete the activity 2 The helper provides more than half the effort to complete the activity 1 Dependent. The helper does all the effort to complete an activity 7 Patient refused to complete or attempt activity 9 The patient did not perform the activity before the current illness or injury 88 Not attempted due to Medical conditions or safety concerns Transfers (B, C, W/C) (FIM): 1 Scootin Rollin Supine to/from Sit: 1 Sit to/from Stand: 1 Bed to/from Chair: 1 SPT dependent assist x 2 to left (strong side) due to right LE TTWB and unable to comply with weight bearing status Exercises Supine Ex: Ankle pumps, Heel Slides, Straight leg raise, Hip abd/add Supine Reps: 10 Assessment Patient is in bed with right LE elevated with pillow due to edema and for comfort. Patient tolerates minimal activity on this date. PT Tank Car Mechanic Goals Snf Goals PT Tank Car Mechanic Goals Time Frame: Nov 28, 2016 Transfers (B,C,W/C) (FIM): 3 (SPT bed to w/c with FWW use) PT Plan Treatment/Plan Treatment Plan: Continue Plan of Care Treatment Plan: Bed Mobility, Education, Functional Activity Bita, Functional Strength, Safety, Therapeutic Exercise, Transfers Treatment Duration: Nov 28, 2016 Visits Per Week: 10-11 Discharge Recommendations Therapy D/C Recommendations: Chcf (TCU/NH) Time/GCodes Time In: 1350 Time Out: 1415 Total Billed Treatment Time: 25 Total Billed Treatment 1 visit FA 15 min EX 10 min ANDRES VENTURA PT Nov 19, 2016 14:47
[2016-11-20 00:30] VITALS: BP 139/88
[2016-11-20 02:42] LABS: BILIRUBIN,URINE NEGATIVE (NEGATIVE); KETONES,URINE NEGATIVE (NEGATIVE); LEUKOCYTE ESTERASE ,URINE 1+ (NEGATIVE); NITRITE,URINE NEGATIVE (NEGATIVE); PH,URINE 5 (5-9); PROTEIN,URINE 3+ (NEGATIVE); UROBILINOGEN,URINE NORMAL (NORMAL)
[2016-11-20 02:57] LABS: WBC,URINE 0-2 /HPF
[2016-11-20] MEDS: NS IV 1000 ML 1,000 ML IV SCH (03:46)
[2016-11-20 07:25] LABS: CREATININE SERUM 1.87 MG/DL (0.60-1.30); POTASSIUM 4.6 MMOL/L (3.6-5.0)
[2016-11-20 08:00] VITALS: BP 121/78
[2016-11-20] MEDS: DOCUSATE SODIUM 100 MG (COLACE) CAP PO SCH ×2 (08:15→21:19)
[2016-11-20] MEDS: PIOGLITAZONE 30MG (ACTOS) TAB PO SCH ×2 (08:15→21:19)
[2016-11-20] MEDS: HYDROcodone/APAP 5 MG/325 MG (LORTAB) TAB PO PRN (08:17)
[2016-11-20] MEDS ORDERED: FUROSEMIDE 40 MG/4 ML INJ (LASIX) IVP NR (08:54)
--- NOTE | 2016-11-20 09:15 | Physical Therapy Daily Note ---
PT Daily Note-Current Subjective Patient is in bed and agrees to PT. Family is present. Pain medication just issued. Pain Numeric Pain Scale: 8 Location: Right Location Body Site: Thigh Pain Description: Acute Appearance 2+edema right LE Mental Status Patient Orientation: Normal For Age Attachments: Oxygen, IV Transfers Functional [place] Measure 0=Not Assessed/NA 4=Minimal Assistance 1=Total Assistance 5=Supervision or Setup 2=Maximal Assistance 6=Modified [place] 3=Moderate Assistance 7=Complete IndependenceIRFPAI Quality Coding Scale 6 Independent with activity with or without an assistive device 5 Patient requires set up or clean up by helper. Patient completes activity by themselves 4 Supervision or touching assist (CGA). [place] provide cues , steadying assist 3 The helper provides less than half the effort to complete the activity 2 The helper provides more than half the effort to complete the activity 1 Dependent. The helper does all the effort to complete an activity 7 Patient refused to complete or attempt activity 9 The patient did not perform the activity before the current illness or injury 88 Not attempted due to Medical conditions or safety concerns Transfers (B, C, W/C) (FIM): 1 Scootin Rollin Supine to/from Sit: 1 Sit to/from Stand: 1 Bed to/from Chair: 1 dependent assist with sit <> stand transfers and all bed mobility. Exercises Supine Ex: Ankle pumps, Heel Slides, Hip abd/add Supine Reps: 10 (right LE AAROM) Seated Therapy Exercises: Ankle pumps, Long arc quads Seated Reps: 20 (right LE AAROM) Assessment Patient continues to require dependent assist with all mobility. Patient has difficulty complying with weight bearing status of TTWB right LE. Plan dismissal to [place] this week. PT Cable Ferryboat Operator Goals Jail Goals PT Cable Ferryboat Operator Goals Time Frame: Nov 28, 2016 Transfers (B,C,W/C) (FIM): 3 (SPT bed to w/c with FWW use) PT Plan Treatment/Plan Treatment Plan: Continue Plan of Care Treatment Plan: Bed Mobility, Education, Functional Activity Bita, Functional Strength, Safety, Therapeutic Exercise, Transfers Treatment Duration: Nov 28, 2016 Visits Per Week: 10-11 Time/GCodes Time In: 815 Time Out: 840 Total Billed Treatment Time: 25 Total Billed Treatment 1 visit FA 15 min EX 10 min ANDRES VENTURA PT Nov 20, 2016 09:15
--- NOTE | 2016-11-20 11:40 | Progress Note-Hospitalist ---
Subjective HPI/CC On Admission The patient's an 89-year-old white male who fell coming out of the shower at his home this morning and suffered a distal femur fracture. His daughter states that he does not walk much but is able to stand and pivot. He spends most of his time in a chair or a wheelchair. His other medical problems include diabetes for which he takes oral medications and high blood pressure. Date Seen 11/20/16 Subjective/Events-last exam patient reports feeling more short of breath with mild nonproductive cough. He denies chest pain. Peripheral edema is about the same. He's had no chills or fever. Objective Exam Vital Signs Vital Sign - Last 12Hours 11/17/16 11/17/16 08:45 11:30 Temp 96.5 Pulse 103 Resp 18 B/P 188/120 Pulse Ox 92 O2 Delivery Room Air O2 Flow Rate 2.00 Capillary Refill : Less Than 3 SecondsLess Than 3 Seconds General Appearance: Chronically ill Mild Distress Neck: Full Range of Motion Other (no JVD) Respiratory: Chest Non Tender No Accessory Muscle Use Cardiovascular: Regular Rate, Rhythm No Gallop No JVD No Murmur Gastrointestinal: Normal Bowel Sounds No Organomegaly No Pulsatile Mass Non Tender Soft Other (some breath sounds left base with rales in right base mid and upper lung holman are clear anteriorly the chest is clear. There is mild tachypnea oh with a respiratory rate of 18 he is not using sensory muscles respiration.) Extremity: Other (2+ edema lower extremity trace on left mild facial puffiness and 1+ edema of the upper extremities) Skin: Pallor Results/Procedures Lab Laboratory Tests 11/20/16 06:45 Assessment/Plan Assessment and Plan Assess & Plan/Chief Complaint 1. CHF exacerbation suspected patient was given 40 mg of Lasix IV around 930 I returned at 11 and the patient had not yet urinated we'll wait till noon and if he has not voided we'll perform a bladder scan. A BNP level has been added if it is normal we will need to check a chest x-ray and consider atypical pneumonia. We will have to hold discharge today. 2. Anemia secondary to post fracture related bleeding improved. 3. Acute kidney injury secondary to hypovolemia from number 2 improved. NEELA DARDEN MD Nov 20, 2016 11:40
--- NOTE | 2016-11-20 11:49 | Progress Note-Hospitalist ---
Subjective HPI/CC On Admission The patient's an 89-year-old white male who fell coming out of the shower at his home this morning and suffered a distal femur fracture. His daughter states that he does not walk much but is able to stand and pivot. He spends most of his time in a chair or a wheelchair. His other medical problems include diabetes for which he takes oral medications and high blood pressure. Date Seen 11/19/16 Subjective/Events-last exam she reports no pain as long as he is not moving the right leg he denies shortness of breath or chest discomfort. Reported blood pressures have been low for this patient in the 90/60 systolic range. He denies lightheadedness and there has been no reported confusion per nursing staff. He answers questions appropriately with no inattention noted during this morning's interview. Objective Exam Vital Signs Vital Sign - Last 12Hours 11/17/16 11/17/16 08:45 11:30 Temp 96.5 Pulse 103 Resp 18 B/P 188/120 Pulse Ox 92 O2 Delivery Room Air O2 Flow Rate 2.00 Capillary Refill : Less Than 3 SecondsLess Than 3 Seconds General Appearance: No Apparent Distress Chronically ill Respiratory: Other (absent breath sounds left base patient has known chronic elevation of the diaphragm elsewhere her chest is clear no wheezes rales or rhonchi are noted. No accessory muscle respiration use as noted above story rate is 18 and nonlabored) Cardiovascular: Regular Rate, Rhythm No Gallop No JVD No Murmur Normal Peripheral Pulses Other (edema is noted about the right knee and distal right thigh no other edema is noted.) Gastrointestinal: Normal Bowel Sounds No Organomegaly No Pulsatile Mass Non Tender Soft Results/Procedures Lab Laboratory Tests 11/20/16 06:45 Assessment/Plan Assessment and Plan Assess & Plan/Chief Complaint 1.Street hypertension but currently hypotensive likely due to hypovolemia continue IV fluids and will hold Losartin. 2. Acute kidney injury likely due to hypovolemia hold Losatrin. 3. Anemia secondary to blood loss from fracture patient is being transfused will repeat H&H in the morning and repeat basic metabolic panel for monitoring kidney function and electrolytes etc. 4. Type II diabetes mellitus under reasonable control continue to monitor fingerstick blood sugars. NEELA DARDEN MD Nov 20, 2016 11:49
--- NOTE | 2016-11-20 13:23 | Progress Note (SOAP) ---
Subjective Subjective/Events-last exam right distal femur fracture with ORIF plate and screws. Patient is doing well and will be going to SNU tomorrow. Objective Exam Vital Signs Date Time Temp Pulse Resp B/P Pulse Ox O2 Delivery O2 Flow Rate FiO2 11/20/16 08:00 98.8 113 20 121/78 95 Nasal Cannula 3.00 11/20/16 08:00 93 Nasal Cannula 3.00 11/20/16 07:16 3.00 11/20/16 00:30 98.9 117 24 139/88 93 Nasal Cannula 3.00 11/19/16 20:28 99.7 81 18 127/86 94 Nasal Cannula 3.00 11/19/16 20:15 93 Nasal Cannula 2.00 11/19/16 16:35 98.6 118 18 124/66 97 Nasal Cannula 3.00 11/19/16 14:40 99.1 110 22 142/86 97 3.00 I & O 11/20/16 07:00 Intake Total 2540 ml Output Total 1200 ml Balance 1340 ml Capillary Refill : Less Than 3 SecondsLess Than 3 Seconds General Appearance: No Apparent Distress WD/WN Respiratory: No Respiratory Distress Peripheral Pulses: 3+ Dorsalis Pedis (R) Extremity: Normal Capillary Refill Normal Inspection Non Tender Neurologic/Psychiatric: Alert Oriented x3 Skin: Normal Color Warm/Dry Other comments Dressing dry clean and intact. Results Lab Laboratory Tests 11/20/16 02:35: Urine Amorphous Sediment FEW VIDA URATESH, Urine Bacteria TRACE, Urine Bilirubin NEGATIVE, Urine Casts NONE, Urine Clarity SLIGHTLY CLOUDY, Urine Color YELLOW, Urine Crystals PRESENTH, Urine Culture Indicated NO, Urine Glucose (UA) NEGATIVE, Urine Ketones NEGATIVE, Urine Leukocyte Esterase 1+H, Urine Mucus NEGATIVE, Urine Nitrite NEGATIVE, Urine Protein 3+H, Urine RBC 10- 25H, Urine RBC (Auto) 5+H, Urine Specific [place] 1.015L, Urine Urobilinogen NORMAL, Urine WBC 0-2, Urine pH 5 11/20/16 06:45: Anion Gap 8, BUN/Creatinine Ratio 25, Blood Urea Nitrogen 46H, Calcium Level 8.0L, Carbon Dioxide Level 20L, Chloride Level 109H, Creatinine 1.87H, Estimat Glomerular Filtration Rate 34, Glucose Level 133H, Hematocrit 28L, Hemoglobin 9.1L, Potassium Level 4.6, Sodium Level 137 11/20/16 12:50: 11/20/16 12:56: Lab Scanned Report Transfusion Reaction Form Microbiology 11/17/16 MRSA Screen - Final, Complete MRSA not isolated Assessment/Plan Assessment/Plan Assess & Plan/Chief Complaint Right distal femur fracture with ORIF plate and screws His scheduled to go to SNU tomorrow and that is fine. Will need to see him in 2 -3 weeks in [place] office. Diagnosis/Problems: Clinical Quality Measures DVT/VTE Risk/Contraindication: Risk Factor Score Per Nursin RFS Level Per Nursing on Admit: 4+=Very High VIDHYA JOHN Nov 20, 2016 13:23
[2016-11-20] MEDS ORDERED: ALFUZOSIN HCL 10 MG TAB (UROXATRAL) PO NR (14:30)
[2016-11-20] MEDS ORDERED: BUMETANIDE 1 MG/4 ML (BUMEX) VIAL IV NR (14:30)
--- NOTE | 2016-11-20 14:39 | Physical Therapy Daily Note ---
PT Daily Note-Current Subjective Patient is up in recliner and agrees to PT. Family present. Pain Numeric Pain Scale: 5-Moderate Pain Location: Right Location Body Site: Thigh Pain Description: Acute Appearance patient removed O2 and SAO2 85%. O2 placed on and SAO2 increased to 95% Mental Status Patient Orientation: Person, Time, Situation Attachments: Oxygen Transfers Functional [place] Measure 0=Not Assessed/NA 4=Minimal Assistance 1=Total Assistance 5=Supervision or Setup 2=Maximal Assistance 6=Modified [place] 3=Moderate Assistance 7=Complete IndependenceIRFPAI Quality Coding Scale 6 Independent with activity with or without an assistive device 5 Patient requires set up or clean up by helper. Patient completes activity by themselves 4 Supervision or touching assist (CGA). [place] provide cues , steadying assist 3 The helper provides less than half the effort to complete the activity 2 The helper provides more than half the effort to complete the activity 1 Dependent. The helper does all the effort to complete an activity 7 Patient refused to complete or attempt activity 9 The patient did not perform the activity before the current illness or injury 88 Not attempted due to Medical conditions or safety concerns Transfers (B, C, W/C) (FIM): 1 Scootin Rollin Supine to/from Sit: 1 Sit to/from Stand: 1 Bed to/from Chair: 1 Patient is unable to comply with TTWB right LE with SPT Weight Bearing Weight Bearing Restriction: Touch Toe Bearing Location Restriction: R LE Exercises Supine Ex: Ankle pumps, Quad Set, Heel Slides Supine Reps: 10 Seated Therapy Exercises: Ankle pumps, Long arc quads Seated Reps: 10 Assessment Patient tolerated treatment well and is repositioned to side lying left with pillows behind back and between bilateral LE's for comfort. PT Correction Goals Drug Coordinator Goals PT Correction Goals Time Frame: Nov 28, 2016 Transfers (B,C,W/C) (FIM): 3 (SPT bed to w/c with FWW use) PT Plan Treatment/Plan Treatment Plan: Continue Plan of Care Treatment Plan: Bed Mobility, Education, Functional Activity Bita, Functional Strength, Safety, Therapeutic Exercise, Transfers Treatment Duration: Nov 28, 2016 Visits Per Week: 10-11 Time/GCodes Time In: 1332 Time Out: 1355 Total Billed Treatment Time: 23 Total Billed Treatment 1 visit FA 10 min EX 13 min ANDRES VENTURA PT Nov 20, 2016 14:39
[2016-11-20 17:00] VITALS: BP 117/78
[2016-11-21 00:31] VITALS: BP 124/73
[2016-11-21 07:30] VITALS: BP 102/71
[2016-11-21] MEDS ORDERED: BUMETANIDE 1 MG/4 ML (BUMEX) VIAL IV NR (07:45)
--- NOTE | 2016-11-21 08:34 | Progress Note-Hospitalist ---
Subjective HPI/CC On Admission The patient's an 89-year-old white male who fell coming out of the shower at his home this morning and suffered a distal femur fracture. His daughter states that he does not walk much but is able to stand and pivot. He spends most of his time in a chair or a wheelchair. His other medical problems include diabetes for which he takes oral medications and high blood pressure. Date Seen 11/21/16 Subjective/Events-last exam patient has been incontinent of small-volume urine throughout the night. He denies pain he denies shortness of breath but he was to Neck and oxygen was off when I walked in the room this morning. He had audible wheezing. She denies chest discomfort he also denies abdominal discomfort or suprapubic discomfort. He denies dysuria Objective Exam Vital Signs Vital Sign - Last 12Hours 11/17/16 11/17/16 08:45 11:30 Temp 96.5 Pulse 103 Resp 18 B/P 188/120 Pulse Ox 92 O2 Delivery Room Air O2 Flow Rate 2.00 Capillary Refill : Less Than 3 SecondsLess Than 3 Seconds General Appearance: Chronically ill Mild Distress HEENT: Pale Conjunctivae (R) Respiratory: Other (rales midlung holman with mild expiratory wheezing respiratory rate 20 is not using accessory muscles respiration) Cardiovascular: Regular Rate, Rhythm Tachycardia Other (murmurs appreciated or S3 or S4 but difficult to hear over congestion) Gastrointestinal: Normal Bowel Sounds Non Tender Soft Extremity: Pedal Edema Neurologic/Psychiatric: Alert Assessment/Plan Assessment and Plan Assess & Plan/Chief Complaint 1. Likely urinary obstruction due to prostatism aggravated by recent surgery in short-term need for narcotics with bedfast stays in a diabetic long-standing Flomax is been initiated we will repeat bladder scan but will likely need Combs catheter to follow if there is still significant urinary retention. Alpha scarlett therapy was initiated yesterday we will continue Flomax. 2. Acute CHF exacerbated by number 1 and hypertensive heart disease we'll give another dose of Bumex today and we'll have to hold intermediate placement with hopeful discharge tomorrow as long as congestive heart failure is improving. Will repeat a basic metabolic panel in the morning and monitor for any evidence for postobstructive diuresis. This complex management situation. He is an elderly diabetic we'll obtain an ECG as he does have risk factors for silent ischemic cardiomyopathy. NEELA DARDEN MD Nov 21, 2016 08:34
[2016-11-21 09:04] LABS: CALCIUM 8.1 MG/DL (8.5-10.1); CREATININE SERUM 2.03 MG/DL (0.60-1.30); POTASSIUM 4.3 MMOL/L (3.6-5.0)
[2016-11-21] MEDS: DOCUSATE SODIUM 100 MG (COLACE) CAP PO SCH ×2 (10:12→20:35)
[2016-11-21] MEDS: PIOGLITAZONE 30MG (ACTOS) TAB PO SCH ×2 (10:12→20:35)
--- NOTE | 2016-11-21 12:13 | Physical Therapy Daily Note ---
PT Daily Note-Current Subjective Pt reports he has not yet had his therapy today. He is agreeable. Transfers Functional [place] Measure 0=Not Assessed/NA 4=Minimal Assistance 1=Total Assistance 5=Supervision or Setup 2=Maximal Assistance 6=Modified [place] 3=Moderate Assistance 7=Complete IndependenceIRFPAI Quality Coding Scale 6 Independent with activity with or without an assistive device 5 Patient requires set up or clean up by helper. Patient completes activity by themselves 4 Supervision or touching assist (CGA). [place] provide cues , steadying assist 3 The helper provides less than half the effort to complete the activity 2 The helper provides more than half the effort to complete the activity 1 Dependent. The helper does all the effort to complete an activity 7 Patient refused to complete or attempt activity 9 The patient did not perform the activity before the current illness or injury 88 Not attempted due to Medical conditions or safety concerns Transfers (B, C, W/C) (FIM): 1 Scootin Supine to/from Sit: 3 Sit to/from Stand: 2 Bed to/from Chair: 1 Educated patient on wt bearing status. Placed bedside chair next to hospital bed and performed a stand pivot transfer with patient holding on to therapist. Weight Bearing Weight Bearing Restriction: Touch Toe Bearing Location Restriction: R LE needs cues to maintain wt bearing. Pt was not able to safely maintain TTWB during transfer due to weakness in the uninvolved leg and UEs. Exercises Supine Ex: LE Protocol Supine Reps: 10 Assessment Current Status: Fair Progress pt able to verbalize what needs to be done for transfers but not able to carry out safely due to weakness. He did initiate moving to the side of the bed and was able to perform with moderate assist for LEs and trunk assist. PT Bean Sprout Grower Goals Bean Sprout Grower Goals PT Bean Sprout Grower Goals Time Frame: Nov 28, 2016 Transfers (B,C,W/C) (FIM): 3 (SPT bed to w/c with FWW use) PT Plan Problem List Problem List: Functional Strength, Safety, Transfer, Bed Mobility Treatment/Plan Treatment Plan: Continue Plan of Care Treatment Plan: Bed Mobility, Education, Functional Activity Bita, Functional Strength, Safety, Therapeutic Exercise, Transfers Treatment Duration: Nov 28, 2016 Visits Per Week: 10-11 Time/GCodes Time In: 1135 Time Out: 1205 Total Billed Treatment Time: 30 Total Billed Treatment visit, exercise 20min, functional activity 10 min PAULIE WILBURN PT Nov 21, 2016 12:13
--- NOTE | 2016-11-21 12:47 | Progress Note (SOAP) ---
Subjective Subjective/Events-last exam right femur fracture doing well. Episode of CHF. Objective Exam Vital Signs Date Time Temp Pulse Resp B/P Pulse Ox O2 Delivery O2 Flow Rate FiO2 11/21/16 07:30 98.6 121 18 102/71 86 Nasal Cannula 3.50 11/21/16 00:31 98.2 97 18 124/73 97 Nasal Cannula 3.50 11/20/16 20:10 94 Nasal Cannula 3.00 11/20/16 17:00 99.3 140 20 117/78 92 Nasal Cannula 3.00 I & O 11/21/16 07:00 Intake Total 1720 ml Output Total 900 ml Balance 820 ml Capillary Refill : Less Than 3 SecondsLess Than 3 Seconds General Appearance: No Apparent Distress Respiratory: Inspiration Rhonci Wheezing Extremity: Normal Capillary Refill Normal Inspection No Pedal Edema Neurologic/Psychiatric: Alert Oriented x3 Other comments Incision dry clean and intact. Results Lab Laboratory Tests 11/20/16 12:50: B-Type Natriuretic Peptide 666.1H 11/20/16 12:56: Lab Scanned Report Transfusion Reaction Form 11/21/16 08:35: Anion Gap 10, BUN/Creatinine Ratio 30, Blood Urea Nitrogen 60H, Calcium Level 8.1L, Carbon Dioxide Level 22, Chloride Level 108H, Creatinine 2.03H, Estimat Glomerular Filtration Rate 31, Glucose Level 209H, Potassium Level 4.3, Sodium Level 140 Microbiology 11/17/16 MRSA Screen - Final, Complete MRSA not isolated Assessment/Plan Assessment/Plan Assess & Plan/Chief Complaint Right distal femur fracture with ORIF plate and screws He was scheduled to go to SNU today but developed CHF and is current being treated for this problem. If better tomorrow he will go. Continue daily dressing changes and current weight bear status Will need to see him in 2-3 weeks in [place] office. Diagnosis/Problems: Clinical Quality Measures DVT/VTE Risk/Contraindication: Risk Factor Score Per Nursin RFS Level Per Nursing on Admit: 4+=Very High VIDHYA JOHN Nov 21, 2016 12:46
--- NOTE | 2016-11-21 14:38 | Physical Therapy Daily Note ---
PT Daily Note-Current Subjective Up in chair and requesting to return to bed. Transfers Functional [place] Measure 0=Not Assessed/NA 4=Minimal Assistance 1=Total Assistance 5=Supervision or Setup 2=Maximal Assistance 6=Modified [place] 3=Moderate Assistance 7=Complete IndependenceIRFPAI Quality Coding Scale 6 Independent with activity with or without an assistive device 5 Patient requires set up or clean up by helper. Patient completes activity by themselves 4 Supervision or touching assist (CGA). [place] provide cues , steadying assist 3 The helper provides less than half the effort to complete the activity 2 The helper provides more than half the effort to complete the activity 1 Dependent. The helper does all the effort to complete an activity 7 Patient refused to complete or attempt activity 9 The patient did not perform the activity before the current illness or injury 88 Not attempted due to Medical conditions or safety concerns Transfers (B, C, W/C) (FIM): 1 Scootin Rollin Supine to/from Sit: 1 Sit to/from Stand: 1 Bed to/from Chair: 1 Pt able to initiate task of sit to stand but required max assist of 2 people to lift and advance the right leg for pivot transfer. Weight Bearing Verbal cues to keep weight on the (L) LE. Exercises Supine Ex: Ankle pumps, Quad Set, Heel Slides, Short Arc Quads, Hip abd/add Supine Reps: 10 Assessment Current Status: Poor Progress Progress remains limited at this time. Pt does not have sufficient strength to raise legs in/out of bed or to push into standing. pt will benefit from continued therapy. PT Rn Clinical Research Goals Rn Clinical Research Goals PT Rn Clinical Research Goals Time Frame: Nov 28, 2016 Transfers (B,C,W/C) (FIM): 3 (SPT bed to w/c with FWW use) PT Plan Treatment/Plan Treatment Plan: Continue Plan of Care Treatment Plan: Bed Mobility, Education, Functional Activity Bita, Functional Strength, Safety, Therapeutic Exercise, Transfers Treatment Duration: Nov 28, 2016 Visits Per Week: 10-11 Time/GCodes Time In: 1315 Time Out: 1340 Total Billed Treatment Time: 25 Total Billed Treatment visit, FA 10min, EX 15 min PAULIE WILBURN PT Nov 21, 2016 14:37
[2016-11-21 16:00] VITALS: BP 110/71
[2016-11-21] MEDS ORDERED: ALFUZOSIN HCL 10 MG TAB (UROXATRAL) PO SCH (18:00)
[2016-11-21 20:26] LABS: BILIRUBIN,URINE NEGATIVE (NEGATIVE); KETONES,URINE NEGATIVE (NEGATIVE); LEUKOCYTE ESTERASE ,URINE 1+ (NEGATIVE); NITRITE,URINE NEGATIVE (NEGATIVE); PH,URINE 5 (5-9); PROTEIN,URINE 2+ (NEGATIVE); UROBILINOGEN,URINE NORMAL (NORMAL)
[2016-11-22 00:45] VITALS: BP 107/65
[2016-11-22 04:30] VITALS: BP 121/74
[2016-11-22 08:00] VITALS: BP 118/77
[2016-11-22] MEDS ORDERED: ALFU10TA PO (08:06)
[2016-11-22] MEDS ORDERED: BUME1TAB4 PO (08:06)
--- NOTE | 2016-11-22 08:09 | Discharge Inst-Skilled Nursing ---
Discharge Inst-Skilled NF Chief Complaint The patient's an 89-year-old white male who fell coming out of the shower at his home this morning and suffered a distal femur fracture. His daughter states that he does not walk much but is able to stand and pivot. He spends most of his time in a chair or a wheelchair. His other medical problems include diabetes for which he takes oral medications and high blood pressure. Consult/Follow Up/Orders Skilled NF Admit to: [facility] ([facility]) I certify that SNF services are required to be given on an inpatient basis because of the above named patient's need for nursing home care on a continuing basis for the conditions(s) for which he/she was receiving inpatient hospital services prior to his/her transfer to the SNF. Jail Facility Order: Gold Burnisher-Evaluate & Treat, Physical Therapy-Evaluate & Treat Discharge Diet: ADA Diet New & Resume Previous Orders Neela Darden Nov 22, 2016 08:07 NEELA DARDEN MD Nov 22, 2016 08:08
[2016-11-22] MEDS ORDERED: ACET-2267 PO (08:10)
[2016-11-22] MEDS: DOCUSATE SODIUM 100 MG (COLACE) CAP PO SCH (08:16)
[2016-11-22] MEDS: PIOGLITAZONE 30MG (ACTOS) TAB PO SCH (08:17)
[2016-11-22] MEDS ORDERED: GLMP1T PO (08:53)
[2016-11-22] MEDS ORDERED: SENN-1 PO (08:56)
--- NOTE | 2016-11-22 13:01 | Progress Note-Standard ---
Standard Progress Note Progress Notes/Assess & Plan Progress/Assessment & Plan Patient much better today. Sitting up in the chair with no pain. A/OX3 Dressing D/C/I N/V/M/I right leg. right femur fracture with ORIF Plate and screws Patient will be leaving for SNU today. Follow with Dr. Rolle in [place] office in 2-3 weeks. Daily dressing changes and staple to be removed 2 from surgery date. VIDHYA JOHN Nov 22, 2016 1:01 pm
--- NOTE | 2016-11-23 14:06 | Physician Query-General Query ---
Physician Query-General Query to Physician: Dear Provider; Admit Date: 11/17/16 Discharge Date: 11/22/16 The medical record reflects the following clinical scenario: History/Risk factors: CHF exacerbation is documented in progress notes on day 4 and 5 11/20/16 and 11/21/16 of the patients stay Clinical Findings: BNP 666.1 on 11/20/16 day 4 of the patients stay Treatment: IV Lasix 40mg on 11/20/16 and Bumex 2mg on 11/20/16 and 11/21/16 day 4 and 5 of patients stay Question: Can you further specify CHF per the clinical indicators above? Please document a response in the Progress Notes or Discharge Summary. 1. Type: Systolic, Diastolic, Systolic & Diastolic 2. CHF, type cannot be furthered specified 3.Other, with explanation of clinical findings 4.Clinically undetermined, no explanation for clinical findings Please remember a lack of response to the above will prompt a phone page by CDI/ coding staff. In responding to this query, please exercise your independent professional judgment. The purpose of this communication is to more accurately reflect the complexity of your patients condition. The fact that a question is asked does not imply that any particular answer is desired or expected. Thank you for your timely response to this clarification. PHYSICIAN RESPONSE: Based on the clinical findings in the record, please respond to the query above on this document as an addendum. Possible, probable, or questionable diagnosis can be coded for INPATIENTS ONLY. Physician Response: Physician Response acute diastolic dysfunction If you have questions please contact: Mobility Architect: Ext: Thank you for your time and cooperation. Clinical Frame Catcher/Mobility Architect This is a permanent part of the medical record TISHA LANDRUM Nov 23, 2016 14:06 NEELA DARDEN MD Nov 28, 2016 16:48
[2016-12-10] MEDS ORDERED: TAMS0.4C2 PO (15:54)
[2016-12-10] MEDS ORDERED: ACET-93 PO (15:54)
[2016-12-10] MEDS ORDERED: GLIM1TAB PO (15:54)
[2016-12-10] MEDS ORDERED: BUME1TAB4 PO (15:54)
[2016-12-10] MEDS ORDERED: SENN-120 PO (15:54)
[2016-12-13] MEDS ORDERED: MORP100S3 PO (08:28)
[2016-12-13] MEDS ORDERED: POTA10CA43 PO (08:32)
--- NOTE | 2016-12-14 12:35 | Discharge Summary-Hospitalist ---
Diagnosis/Chief Complaint Date of Admission Nov 17, 2016 at 10:31 Date of Discharge Nov 22, 2016 at 13:50 Discharge Date: Nov 22, 2016 Admission Diagnosis 1.fracture right distal femur. 2.hypertension. 3.diabetes mellitus type II oral medications Discharge Diagnosis 1. Likely urinary obstruction due to prostatism aggravated by recent surgery in short-term need for narcotics with bedfast stays in a diabetic long-standing Flomax is been initiated we will repeat bladder scan but will likely need Combs catheter to follow if there is still significant urinary retention. Alpha scarlett therapy was initiated yesterday we will continue Flomax. 2. Acute CHF exacerbated by number 1 and hypertensive heart disease we'll give another dose of Bumex today and we'll have to hold [facility] placement with hopeful discharge tomorrow as long as congestive heart failure is improving. Will repeat a basic metabolic panel in the morning and monitor for any evidence for postobstructive diuresis. This complex management situation. He is an elderly diabetic we'll obtain an ECG as he does have risk factors for silent ischemic cardiomyopathy. Reason Hospital Visit/Course The patient's an 89-year-old white male who fell coming out of the shower at his home this morning and suffered a distal femur fracture. His daughter states that he does not walk much but is able to stand and pivot. He spends most of his time in a chair or a wheelchair. His other medical problems include diabetes for which he takes oral medications and high blood pressure. He was admitted to the hospital and Dr. Rolle was consulted. He underwent ORIF to a comminuted slightly displaced distal right femur fracture. His hospital course was complicated by urinary retention requiring Combs catheter placement. He did not have evidence for urinary tract infection. Alpha scarlett therapy was initiated in the form of Flomax and this was continued on discharge to the [facility]. While he was discharged with Combs catheter it is to be removed on Saturday with monitoring for urinary retention. A catheter will be replaced if the patient is unable to void. If this is the case urology consultation will then the set up. Patient is otherwise discharged via [facility]ci services for physical occupational therapy with the hopeful goal of discharge back to his home to independent living. For now he is toe- touch he will be following up with Dr. Rolle in 4 weeks to see about advancing weightbearing status. For see that several months of [facility] care will be necessary with a possibility that this may be a terminal [facility]p event. Discharge Summary Discharge Physical Examination Allergies: Coded Allergies: Penicillins (Unverified Allergy, Unknown, 11/06/14) Hospital Course Labs (last 24 hrs) Microbiology 11/17/16 MRSA Screen - Final, Complete MRSA not isolated Discharge Home Medications: Active Scripts Active Potassium Chloride 10 Meq Capsule.er 10 Meq PO DAILY Morphine Sulfate Concentrate 20mg/ml (Morphine Sulfate) 100 Mg/5 Ml Solution 20 Mg PO Q2H PRN Reported Tamsulosin HCl 0.4 Mg Cap.er.24h 0.4 Mg PO DAILY@0830 Senna Plus Tablet (Sennosides/Docusate Sodium) 1 Each Tablet 1 Tab PO DAILY PRN Bumetanide 1 Mg Tablet 1 Mg PO DAILY Acetaminophen 500 Mg Tablet 1,000 Mg PO Q6H Hydrocortisone 453.6 Gm Cream..g. TP BID PRN Aspir 81 (Aspirin) 81 Mg Tablet.dr 81 Mg PO DAILY Instructions to patient/family Please see electonic discharge instructions given to patient. Clinical Quality Measures DVT/VTE Risk/Contraindication: Risk Factor Score Per Nursin RFS Level Per Nursing on Admit: 4+=Very High NEELA DARDEN MD Dec 14, 2016 12:35
== END 2016-11-22 13:50 | DRG 480 ==
LOC: EDUNIT# 08:45 → ER 08:46 → 4TH 10:31
PROVIDERS: ADMIT Internal Medicine; ATTEND Internal Medicine
PROC: 0QSB04Z Reposition Right Lower Femur with Internal Fixation Device, Open Approach (ICD-10-PCS; principal; 2016-11-17 14:01)
DX: S72.452A Displaced supracondylar fracture without intracondylar extension of lower end of left femur, initial encounter for closed fracture (principal); M97.11XA Periprosthetic fracture around internal prosthetic right knee joint, initial encounter; N17.9 Acute kidney failure, unspecified; I11.0 Hypertensive heart disease with heart failure; I50.31 Acute diastolic (congestive) heart failure; N40.1 Benign prostatic hyperplasia with lower urinary tract symptoms; N13.8 Other obstructive and reflux uropathy; D62 Acute posthemorrhagic anemia; E11.9 Type 2 diabetes mellitus without complications; R54 Age-related physical debility; Z79.84 Long term (current) use of oral hypoglycemic drugs; Z96.651 Presence of right artificial knee joint; Z96.641 Presence of right artificial hip joint; M19.90 Unspecified osteoarthritis, unspecified site; Z86.19 Personal history of other infectious and parasitic diseases; W01.0XXA Fall on same level from slipping, tripping and stumbling without subsequent striking against object, initial encounter; Y92.002 Bathroom of unspecified non-institutional (private) residence as the place of occurrence of the external cause; Y93.E1 Activity, personal bathing and showering; Y99.8 Other external cause status
CPT/HCPCS: 36415; 71010; 73502; 73552; 73560; 73700; 80048; 80053; 81000; 83880; 85014; 85018; 85025; 85027; 86850; 86900; 86901; 86920; 86922; 87081; 93005; 94664; 96374; 96375